=== PATIENT | male | born 1955 ===

== ENCOUNTER 2024-03-30 07:40 | Day surgery (SDC) | payer OTHER ==
[~2024-03-30 07:40] MED LIST: AMLODIPINE BESYL5 MG PO; ATORVASTATIN CA10 MG PO; SYNTHROID125 MCG PO; VALSARTAN320 MG PO
[2024-03-30] MEDS ORDERED: HEMOSTATIC MATRIX 1 KIT KIT TOP ONE ×2 (09:07→09:45)
[2024-03-30] MEDS ORDERED: DIBUCAINE 30 GM TUBE ONE (09:07)
[2024-03-30] MEDS ORDERED: CEFTRIAXONE SODIUM 2,000 MG VIAL ONE (09:08)
[2024-03-30] MEDS ORDERED: BUPIVACAINE HCL/Mpf 0.5% 10ML VIAL ONE (09:08)
[2024-03-30] MEDS ORDERED: POVIDONE-IODINE 118 ML BOTT TOP ONE ×2 (09:08→09:45)
[2024-03-30] MEDS ORDERED: METRONIDAZOLE/SODIUM CHLORIDE 500 MG/100 ML PIGGYBACK IV ONE ×2 (09:08→09:45)
[2024-03-30] MEDS ORDERED: BUPIVACAINE HCL/PF 0.25% 30ML VIAL InF ONE (09:45)
[2024-03-30] MEDS ORDERED: CEFTRIAXONE SODIUM 2,000 MG VIAL IV ONE (09:45)
[2024-03-30] MEDS ORDERED: DIBUCAINE 15 GM OINT..GM. TUBE RECTAL ONE (09:45)
[2024-03-30] MEDS ORDERED: ONDANSETRON HCL 2 MG/ML VIAL ONE (11:45)
== END 2024-03-30 14:55 | disposition home or self-care (01) ==
LOC: CIR.AMB 07:40
PROVIDERS: ATTEND Colon & Rectal Surgery
DX: K64.2 Third degree hemorrhoids (principal); K60.0 Acute anal fissure; K64.4 Residual hemorrhoidal skin tags; K92.1 Melena; F41.0 Panic disorder [episodic paroxysmal anxiety]; I10 Essential (primary) hypertension; E03.9 Hypothyroidism, unspecified